=== PATIENT | male | born 1990 | race Caucasian/White ===

== ENCOUNTER 2024-11-11 10:19 | Emergency (ER) | payer MEDICAID ==
[~2024-11-11] VITALS: Ht 177.8 cm; Wt 77.3 kg
[~2024-11-11 10:19] MED LIST: CLIN-97 PO; HYDR-4383 PO
[2024-11-11] MEDS: ketorolac trometh 15mg/ml vial 15 MG/ML ML IM ONE (12:41)
[2024-11-11] MEDS ORDERED: IBUP-1984 PO (12:48)
[2024-11-11 12:51] VITALS: BP 134/78; PULSE 80; RESP 18; TEMP 97.7; O2SAT 97
== END 2024-11-11 13:01 | disposition home or self-care (01) ==
LOC: ER 10:20
DX: R07.81 Pleurodynia (principal); F12.90 Cannabis use, unspecified, uncomplicated; Z79.899 Other long term (current) drug therapy
CPT/HCPCS: 71110; 96372; 99283; J1885